=== PATIENT | female | born 1955 | race Caucasian/White ===

== ENCOUNTER 2017-04-22 15:20 | Observation (INO) | payer BC ==
[2017-04-22] MEDS ORDERED: Labetalol 100 MG/20 ML MDV ONE (15:39)
[2017-04-22] MEDS ORDERED: Labetalol 100 MG/20 ML MDV IVPUSH ONE ×2 (15:52→16:30)
[2017-04-22] MEDS: Sodium Chloride 0.9% 5 ML Syringe FLUSH SCH ×2 (16:06→21:56)
[2017-04-22] MEDS: Nicotine 14 MG/24 Hr Patch TRDERM SCH (17:57)
[2017-04-22] MEDS ORDERED: Diclofenac Sodium 75 MG Tab.EC PO SCH (18:00)
[2017-04-22] MEDS ORDERED: Aspirin 325 MG Tab.EC PO PRN (19:30)
[2017-04-22] MEDS: Metoprolol Tartrate 25 MG Tab PO SCH (20:17)
[2017-04-22] MEDS ORDERED: Atropine 0.1 MG/ML 10 ML Syringe IVPUSH PRN (20:36)
[2017-04-22] MEDS ORDERED: Lidocaine 2% 100 MG/5 ML Syringe IVPUSH PRN (20:36)
[2017-04-22] MEDS ORDERED: Nitroglycerin 0.4 MG Tab.SL SL PRN (20:36)
[2017-04-22] MEDS ORDERED: EPINEPHrine 1:10,000 1 MG/10 ML Syringe IVPUSH PRN (20:36)
[2017-04-23] MEDS: Sodium Chloride 0.9% 5 ML Syringe FLUSH SCH (06:04)
[2017-04-23 06:21] VITALS: BP 126/69
[2017-04-23 08:21] LABS: CHLORIDE,CL 108 mmol/L (98-115); SODIUM,NA 143 mmol/L (136-145)
[2017-04-23] MEDS: Metoprolol Tartrate 25 MG Tab PO SCH (09:27)
[2017-04-23] MEDS: Nicotine 14 MG/24 Hr Patch TRDERM SCH (09:28)
--- NOTE | 2017-04-24 07:58 | DISCH ---
FINAL DIAGNOSES: 1. Hypertension, essential, stage 2, much improved. 2. Hyperlipidemia, restarted statin therapy. 3. Tobacco dependency, now on nicotine replacement therapy. 4. Elevated liver enzymes, surveillance required (high dose NSAID usage). BRIEF HISTORY: This 61-year-old current smoker was admitted in observation last night, was admitted by Gina Stiles, nurse practitioner. The patient had elevated blood pressure. She had been having some chest pain that was reproducible on deep breathing. She said her blood pressure had been very vacillating up and down for quite some time. She does have some significant recent life stressors with family stressors and illnesses. She noted that her blood pressure systolically was over 200. However, she did not appear to have any end-organ damage, although she did have some EKG changes which appeared to be a cardiac strain with a Q-wave in inferior leads--however small. She was admitted for observation. IV labetalol was pushed, 20 mg on admission, the patient stayed overnight. HOSPITAL COURSE: The patient's hospital course was quite uneventful. She never had any hemodynamic instability once labetalol 20 mg was pushed. Her blood pressure on admission was 171/101, however, is slowly titrated down to 130s and in the 120s systolically, 60s to 70s diastolically. She had full resolution of her chest wall pain. She did not have any visual changes or shortness of breath. She had a 14 mg nicotine transdermal patch that was applied. She was on telemetry. I reviewed all the telemetry strips, and she had no aberrancy. LABORATORY DATA: Her troponin at [facility] was normal. Serialized at the hospital x1 was normal. Sodium, potassium, BUN, and creatinine all normal. MICROBIOLOGY: None. PHYSICAL EXAM ON DISCHARGE: VITAL SIGNS: Blood pressure 126/69, temperature 97.4, heart rate 80, respiratory rate 20, and O2 sats 96% on room air. GENERAL: The patient was alert and oriented. CARDIOVASCULAR: Regular rate and rhythm. No S3. No murmur. PMI, third intercostal space MCL. LUNGS: Clear to auscultation. BACK: No CV tenderness. EXTREMITIES: No edema. DIAGNOSTICS: Repeat EKG on discharge showed normal sinus rhythm, heart rate 76, nonspecific ST-T wave abnormality-- improvement. MEDICATIONS ADJUSTMENTS: 1. Metoprolol tartrate 25 mg p.o. b.i.d. (newly added). 2. Nicotine transdermal patch 14 mg x1 month, reduced dosage thereafter (newly added). She can continue on all other home medications. DISPOSITION: The patient will be discharged from the hospital. She strongly desires to go. She will follow up with Gina Stiles NP next week. She can return to work Thursday. She is to report any worsening chest pains. She will take her blood pressure twice a day. Parameters were given to her. She was given a DASH diet to help reduce blood pressure. Lifestyle modifications were stressed to the patient. RECOMMENDATIONS AT FOLLOWUP: Review DASH diet compliance, review compliance with smoking cessation, assess the need for increase in Lipitor, repeat liver enzymes--nonfasting okay, education on reducing NSAID usage and/or stomach GI protection, May need thiazide diuretic MEDICAL DECISION MAKIN minutes was spent on this discharge planning and process. /[id number]/MODL [email or web address]
== END 2017-04-23 10:34 | disposition home or self-care (01) ==
LOC: KA.MS 15:29
PROVIDERS: ADMIT Nurse Practitioner Family; ATTEND Nurse Practitioner Family
DX: I10 Essential (primary) hypertension (principal); E78.5 Hyperlipidemia, unspecified; R94.5 Abnormal results of liver function studies; Z79.82 Long term (current) use of aspirin; Z79.1 Long term (current) use of non-steroidal anti-inflammatories (NSAID); Z88.0 Allergy status to penicillin; Z88.2 Allergy status to sulfonamides; Z88.8 Allergy status to other drugs, medicaments and biological substances; Z90.49 Acquired absence of other specified parts of digestive tract; Z98.890 Other specified postprocedural states; Z79.899 Other long term (current) drug therapy; F17.210 Nicotine dependence, cigarettes, uncomplicated
CPT/HCPCS: 36415; 80048; 84484; 93005; 96374; A9270; G0378; G0379